=== PATIENT | female | born 1930 | race Caucasian/White ===

== ENCOUNTER → 2016-05-26 | Outpatient (REF) | payer MEDICARE | END | disposition home or self-care (01) | LOC: M LAB REF 14:45 | PROVIDERS: ATTEND Registered Nurse | DX: D22.9 Melanocytic nevi, unspecified (principal); L82.1 Other seborrheic keratosis ==

== ENCOUNTER → 2017-11-02 | Outpatient (REF) | payer MEDICARE, OTHER | LOC: M LAB REF 10:20 | DX: L82.1 Other seborrheic keratosis (principal) | CPT/HCPCS: 88305 ==